=== PATIENT | male | born 1990 ===

== ENCOUNTER 2022-03-13 13:51 | Observation (INO) | payer OTHER ==
[~2022-03-13] VITALS: Ht 177.8 cm; Wt 108.9 kg
--- NOTE | 2022-03-13 15:05 | NUR ---
EMS BROUGHT PT TO ROOM FROM OUTSIDE FACILITY. PT STATES THAT "HE IS HUNGRY." PT STATES THAT HE IS NOT HAVING ANY PAIN OR DISCOMFORT AT THIS TIME. PT STATES THAT HE IS SOB WHEN WALKS. PT IS COUGHING AND STATES THAT IT IS PRODUCTIVE. CALL LIGHT IS WITHIN REACH.
[2022-03-13] MEDS ORDERED: COZAAR100 MG PO (15:29)
[2022-03-13 15:50] VITALS: BP 150/97; PULSE 113; TEMP 97.8
--- NOTE | 2022-03-13 18:39 | NUR ---
PT SITTING UP IN BED TALKING ON PHONE. PT STATES THAT HE IS NOT HAVING ANY SOB OR PAIN AT THIS TIME. PT STATES THAT HE IS NOT ABLE TO GIVE URINE OR SPUTUM SAMPLES AT THIS TIME. PT STATES NO NEEDS AT THIS TIME. CALL LIGHT IS WITHIN REACH.
[2022-03-13 20:14] VITALS: BP 136/71; PULSE 104; TEMP 98.8
[2022-03-14] VITALS: BP 124/71; PULSE 98; TEMP 98.5
--- NOTE | 2022-03-14 02:10 | NUR ---
Pt alert and oriented this evening, resting quietly in bed. Denies pain. Pt does not appear to be SOB/dyspneic/diaphoretic. Pt does have a non-productive cough. Sputum culture remains uncollected, educated pt to collect sputum. Shift assessment performed. Medications administered per orders and education provided. VS WNL. Pt satting in 90's on room air. Prn tessalon perle provided per pt request after respiratory treatment. Pt independently voids in bathroom. IV fluids continuing via IV. Pt has been NPO since 0000 for procedure on 03/14. Pt does not report any questions at this time, will continue to monitor.
[2022-03-14 04:10] VITALS: BP 136/77; PULSE 86; TEMP 98.5
--- NOTE | 2022-03-14 05:12 | NUR ---
Pt remains alert and oriented, resting quietly. Denies pain. No SOB/dyspnea/diaphoresis. Pt was satting at 88% overnight and was placed on 3L of oxygen. Pt now satting at 100% on 3L. Will titrate O2. Pt independent and up to void overnight. IV fluids continue. Enforced NPO 0000. Pt had prn tessalon perles x2 for cough. Pt reports no questions at this time, will continue to monitor.
--- NOTE | 2022-03-14 05:36 | NUR ---
Pt titrated back to room air. Satting at 94%. Will continue to monitor.
[2022-03-14 06:17] LABS: BASO # 0.1 K/mm3 (0.0-0.2); BASO % 0.8 % (0.0-2.0); EOS # 0.8 K/mm3 (0.0-0.7); EOS % 8.9 % (0.0-4.0); GRAN # 4.5 K/mm3 (1.4-6.5); GRAN % 52.1 % (42.2-75.2); HEMATOCRIT 43.1 % (42.0-52.0); HEMOGLOBIN 14.1 g/dl (13.5-18.0); LYMPH # 2.2 K/mm3 (1.2-3.4); LYMPH % 25.9 % (20.0-51.0); MEAN CELL VOLUME 89 fl (80.0-100.0); MEAN CORPUSCULAR HEMOGLOBIN 29 pg (27-31); MEAN CORPUSCULAR HGB CONC 33 g/dl (33.0-37.0); MEAN PLATELET VOLUME 9.8 fl (7.4-10.4); PLATELET COUNT 265 K/mm3 (130-400); RED BLOOD COUNT 4.82 M/mm3 (4.20-5.60)
[2022-03-14 06:41] LABS: ALBUMIN 2.9 gm/dL (3.5-5.0); CALCIUM 8.1 mg/dL (8.4-10.2); CHOLESTEROL RISK RATIO 5.9; CREATININE, serum 1.05 mg/dL (0.72-1.25); MAGNESIUM 2.1 mg/dL (1.6-2.6); PHOSPHOROUS 4.1 mg/dL (2.3-4.7); POTASSIUM 4.5 mmol/L (3.5-4.5)
[2022-03-14 07:17] VITALS: BP 148/79; PULSE 91; TEMP 98
--- NOTE | 2022-03-14 09:02 | NUR ---
Schedule medications given.Shift assessment preformed. Patient A&O. Currently on RA. VSS. Fluids running as ordered. Patient c/o of non productive cough. Tessalon perles given PRN. Patient denies any pain, dicomfort, SOA, or further needs at this time. Call light in reach.
--- NOTE | 2022-03-14 09:23 | NUR ---
Socail worker met with patient to complete intake and discuss discharge plan. Patient lives at home with his Sangeetha ([phone]) in [place]. Patient is fully independent with his ADL's and does not utilize any DME or home oxygen. Patient utilizes [facility] for PCP needs and gets his medications from [facility]. Patient does not have a DPOA-HC estbalished at this time. Educated him that his would be his legal decision maker. Patient is planning on returning home once medically ready. Discharge plan: Home
--- NOTE | 2022-03-14 10:38 | NUR ---
Lisa: [employer] Situation: Cashier Greeter went to room on rounds Background: PT is and is doing well Assessment: PT seems very content and appreciated the visit Recommendation: Cashier Greeter will follow up as needed
[2022-03-14] MEDS ORDERED: OMNICEF 300MG300 MG PO (11:12)
[2022-03-14] MEDS ORDERED: COREG 3.123.125 MG/T PO (11:12)
[2022-03-14] MEDS ORDERED: DOXYCYCLINE 10100 MG PO (11:12)
[2022-03-14 11:24] VITALS: BP 145/74; PULSE 74; TEMP 98.1
--- NOTE | 2022-03-14 14:20 | NUR ---
Patient deemed fit for discharge. IV DC'd, catheter intact, no signs of phlebitis. Discharge education/instructions given. All questions answered. VSS. Patient A&O. Patient denies any pain, discomfort, SOA, or further needs at this time. Patient ambulated from building, escorted by [facility] Staff, Family transporting home.
== END 2022-03-14 14:00 | disposition home or self-care (01) ==
LOC: MEDICAL 13:51
PROVIDERS: ADMIT Internal Medicine
DX: J18.9 Pneumonia, unspecified organism (principal); I21.4 Non-ST elevation (NSTEMI) myocardial infarction; R11.0 Nausea; R79.1 Abnormal coagulation profile; R77.8 Other specified abnormalities of plasma proteins; R11.10 Vomiting, unspecified; I10 Essential (primary) hypertension; Z28.310 Unvaccinated for COVID-19; Z28.9 Immunization not carried out for unspecified reason; Z79.899 Other long term (current) drug therapy; Z87.891 Personal history of nicotine dependence
CPT/HCPCS: G0378; J0456; J0696; J7030; J7050

== ENCOUNTER 2022-08-07 08:30 | Day surgery (SDC) | payer OTHER ==
[2022-08-07] VITALS (11 sets, daily range): BP systolic 99–138; BP diastolic 63–97; PULSE 65–84; TEMP 98.8
[~2022-08-07] VITALS: Ht 177.8 cm; Wt 117.7 kg
[~2022-08-07 08:30] MED LIST: COREG 3.123.125 MG/T PO; COZAAR100 MG PO; DOXYCYCLINE 10100 MG PO; OMNICEF 300MG300 MG PO
[2022-08-07] MEDS ORDERED: COZAAR100 MG PO (08:57)
[2022-08-07] MEDS ORDERED: NORVASC2.5 MG PO (08:58)
[2022-08-07 09:19] LABS: HEMOGLOBIN 15.4 g/dl (13.5-18.0); MEAN CELL VOLUME 86 fl (80.0-100.0); MEAN CORPUSCULAR HEMOGLOBIN 29 pg (27-31); MEAN CORPUSCULAR HGB CONC 34 g/dl (33.0-37.0); MEAN PLATELET VOLUME 9.7 fl (7.4-10.4); PLATELET COUNT 304 K/mm3 (130-400); RED BLOOD COUNT 5.25 M/mm3 (4.20-5.60); REDCELL DISTRIBUTION WIDTH-CV 13.1 % (11.5-14.5)
[2022-08-07 09:25] LABS: INR 1.1 (0.8-3.0); PROTHROMBIN TIME 12.9 SECONDS (9.7-12.8)
[2022-08-07 09:28] LABS: PARTIAL THROMBOPLASTIN TIME 36.5 SECONDS (26.0-37.0)
[2022-08-07 10:24] LABS: CALCIUM 9.5 mg/dL (8.4-10.2); CREATININE, serum 1.07 mg/dL (0.72-1.25); POTASSIUM 4.7 mmol/L (3.5-4.5)
--- NOTE | 2022-08-07 10:56 | NUR ---
SEE MERGE FOR VITAL SIGNS, ASSESSMENTS, INTERVENTIONS AND MEDICATIONS GIVEN.
--- NOTE | 2022-08-07 15:10 | NUR ---
DC instructions reviewed with pt who expressed understanding. He has tolerated PO without issue. He has slept through most of recovery period, but woke easily each time staff entered room. He is now alert, free of complaint. Steady on feet in room. Air has been removed from TR band in 2 ml increments, with no bleeding or complication. Rt radial puncture site dressed with folded 2x2 and bandaid. IV site wrapped with coban. Pt assisted out to pt entrance to meet his friend for ride home.
== END 2022-08-07 15:10 | disposition home or self-care (01) ==
LOC: COL.CAR 08:30
PROVIDERS: Internal Medicine Cardiovascular Disease
DX: R94.39 Abnormal result of other cardiovascular function study (principal); R07.2 Precordial pain; I10 Essential (primary) hypertension; F17.290 Nicotine dependence, other tobacco product, uncomplicated
CPT/HCPCS: C1769; C1887; J1644; J2250; J3010; Q9967